=== PATIENT | female | born 1980 | race American Indian/Alaskan Native ===

== ENCOUNTER 2020-05-22 13:25 | Outpatient (CLI) | payer OTHER | END 2020-05-22 18:47 | disposition home or self-care (01) | LOC: OBS/DEL 13:25 | PROVIDERS: ATTEND Obstetrics & Gynecology | DX: O26.892 Other specified pregnancy related conditions, second trimester (principal); N89.8 Other specified noninflammatory disorders of vagina; O98.812 Other maternal infectious and parasitic diseases complicating pregnancy, second trimester; B37.49 Other urogenital candidiasis ==

== ENCOUNTER 2020-06-01 03:26 | Inpatient (IN) | payer OTHER ==
[~2020-06-01] VITALS: Ht 165.1 cm; Wt 0.9 kg
[2020-06-01] MEDS ORDERED: ASPIRINA (05:44)
[2020-06-01] MEDS ORDERED: PRENATAL TABLE1 EAC1 PO (05:45)
[2020-06-01] MEDS ORDERED: FOLIC ACID20 MG PO (05:45)
[2020-06-03] MEDS ORDERED: ASPIRIN325 MG (11:20)
== END 2020-06-05 18:09 | disposition home or self-care (01) | DRG 788 ==
LOC: LDR 03:26 → OB/GYN 03:26 → O/R 22:59 → OB/GYN 23:28
PROVIDERS: Obstetrics & Gynecology; ADMIT Obstetrics & Gynecology; ATTEND Obstetrics & Gynecology
PROC: 4A1HXFZ Monitoring of Products of Conception, Cardiac Rhythm, External Approach (ICD-10-PCS; 2020-06-01)
PROC: 3E033VJ Introduction of Other Hormone into Peripheral Vein, Percutaneous Approach (ICD-10-PCS; 2020-06-01)
PROC: BY4FZZZ Ultrasonography of Third Trimester, Single Fetus (ICD-10-PCS; 2020-06-01)
PROC: 10D00Z1 Extraction of Products of Conception, Low, Open Approach (ICD-10-PCS; principal; 2020-06-01 20:00)
DX: O60.14X0 Preterm labor third trimester with preterm delivery third trimester, not applicable or unspecified (principal); Z3A.27 27 weeks gestation of pregnancy; Z37.0 Single live birth; Z20.828 Contact with and (suspected) exposure to other viral communicable diseases